=== PATIENT | female | born 1980 | race Caucasian/White ===

== ENCOUNTER 2022-05-09 17:28 | Emergency (ER) | payer BC ==
[2022-05-09 18:23] LABS: HEMOGLOBIN 14.1 gm/dl (12.3-15.3); RED BLOOD COUNT 4.48 M/UL (4.00-5.10); WHITE BLOOD COUNT 8.8 K/UL (4.5-11.0)
[2022-05-09 18:44] LABS: BUN/CREATININE RATIO 21 (0-10)
== END 2022-05-09 21:45 | disposition home or self-care (01) ==
LOC: ER1 17:28
PROVIDERS: Physician Assistant Medical
DX: U07.1 COVID-19 (principal)
CPT/HCPCS: 0240U; 71045; 80053; 81001; 82550; 82553; 84484; 84703; 85025; 85379; 99284; J1885; J2405